=== PATIENT | female | born 1985 | race Caucasian/White ===

== ENCOUNTER → 2016-07-19 | Outpatient (CLI) | payer OTHER | LOC: COL.RAD 09:27 | DX: R10.2 Pelvic and perineal pain (principal) ==

== ENCOUNTER → 2016-09-22 | Outpatient (CLI) | payer OTHER | LOC: MC.RAD 08:14 | DX: N64.89 Other specified disorders of breast (principal) ==

== ENCOUNTER 2017-08-18 15:17 | Outpatient (CLI) | payer OTHER ==
[~2017-08-18] VITALS: Ht 152.4 cm; Wt 80.9 kg
[2017-08-18 15:07] VITALS: BP 121/73; PULSE 66; TEMP 98.3
[~2017-08-18 15:17] MED LIST: PRENATAL
[2017-08-18 16:00] VITALS: BP 121/73; PULSE 66; TEMP 98.3
[2017-08-18 16:01] LABS: COLLECTION METHOD CLEAN CATCH
[2017-08-18 16:06] LABS: PH 6 (5-8); SQUAMOUS EPITHELIAL None Seen /hpf; URINE APPEARANCE Clear; URINE BACTERIA None Seen /hpf; URINE BILIRUBIN Negative (NEGATIVE); URINE BLOOD Negative (NEGATIVE); URINE COLOR Straw; URINE GLUCOSE 2+ (NEGATIVE); URINE KETONE Negative (NEGATIVE); URINE LEUKOCYTE ESTERASE Negative (NEGATIVE); URINE NITRATE Negative (NEGATIVE); URINE PROTEIN(semi-quant) Negative (NEGATIVE); URINE RBC 0-2 /hpf; URINE UROBILINOGEN Negative (NEGATIVE); URINE WBC 0-2 /hpf
== END 2017-08-18 16:50 | disposition home or self-care (01) ==
LOC: LDRO 15:17 → LDR 15:24 → LDRO 16:50
PROVIDERS: Obstetrics & Gynecology
DX: O26.853 Spotting complicating pregnancy, third trimester (principal); Z3A.33 33 weeks gestation of pregnancy
CPT/HCPCS: OP

== ENCOUNTER 2017-09-24 06:03 | Inpatient (IN) | payer OTHER ==
[2017-09-24] VITALS (69 sets, daily range): BP systolic 82–157; BP diastolic 29–99; PULSE 51–84; TEMP 97.8–98.2
[~2017-09-24] VITALS: Ht 149.9 cm; Wt 84.5 kg
[2017-09-24] MEDS ORDERED: ZANTAC 7575 MG PO (07:22)
[2017-09-24 07:58] LABS: BASO % 0.3 % (0.0-2.0); EOS # 0.1 (0.0-0.7); EOS % 0.7 % (0-4.0); GRAN % 67.6 % (42.2-75.2); HEMOGLOBIN 11.6 g/dl (12.5-16.0); LYMPH % 22.6 % (20.0-51.0); MEAN CELL VOLUME 86 fl (80.0-100.0); MEAN CORPUSCULAR HEMOGLOBIN 30 pg (27.0-31.0); MEAN CORPUSCULAR HGB CONC 34 g/dl (33.0-37.0); MEAN PLATELET VOLUME 10.6 fl (7.4-10.4); MONO # 0.7 (0.1-0.6); MONO % 7.7 % (1.7-9.3); PLATELET COUNT 195 K/mm3 (130-400); RED BLOOD COUNT 3.92 M/mm3 (4.10-5.30); REDCELL DISTRIBUTION WIDTH-CV 12.7 % (11.5-14.5)
[2017-09-24 07:59] LABS: HEMATOCRIT 33.7 % (37.0-47.0)
[2017-09-25] VITALS (7 sets, daily range): BP systolic 95–112; BP diastolic 45–69; PULSE 58–68; TEMP 97.4–98.7
[2017-09-26 07:54] VITALS: BP 104/61; PULSE 73; TEMP 97.5
[2017-09-26] MEDS ORDERED: IBU800 M1 PO (11:51)
[2017-09-26] MEDS ORDERED: PERCOCET 325 MG1 TA2 PO (11:51)
== END 2017-09-26 13:45 | disposition home or self-care (01) | DRG 766 ==
LOC: LDR 06:03 → OB 06:58
PROVIDERS: Student in an Organized Health Care Education/Training Program
PROC: 10D00Z1 Extraction of Products of Conception, Low, Open Approach (ICD-10-PCS; principal; 2017-09-24)
PROC: 10907ZC Drainage of Amniotic Fluid, Therapeutic from Products of Conception, Via Natural or Artificial Opening (ICD-10-PCS; 2017-09-24)
PROC: 3E033VJ Introduction of Other Hormone into Peripheral Vein, Percutaneous Approach (ICD-10-PCS; 2017-09-24)
DX: O76 Abnormality in fetal heart rate and rhythm complicating labor and delivery (principal); Z3A.39 39 weeks gestation of pregnancy; Z37.0 Single live birth; O62.1 Secondary uterine inertia
CPT/HCPCS: J0690; J1885; J2175; J2250; J2370; J2400; J2405; J2590; J2795; J3010; J7120